=== PATIENT | female | born 1990 | race Hispanic/Latino ===

== ENCOUNTER 2017-09-14 13:13 | Outpatient (CLI) | payer OTHER ==
--- NOTE | 2017-09-14 15:40 | ULT ---
OB ULTRASOUND: Date: 09/14/17 HISTORY: anatomy. FINDINGS: A single live intrauterine gestation is seen with measurements corresponding to an estimated gestati onal age of 20 weeks/4 days and STARR at 01/28/18. measurements are as follows: BPD: 4.96 cm, 21 weeks/0 days HC: 18.18 cm, 20 weeks/4 days FL: 3.42 cm, 20 weeks/5 days Cervical length measures 5.7 cm. heart rate measures 128 beats/minute. Placenta is anteriorly located without evidence of placenta previa. LUPE measures 13.0 cm. Three vessel cord, cord insertion, kidneys, bladder, stomach, four chamber heart, lateral vent ricles, cerebellum, spine, lips/nose, and upper/lower extremities are visualized. No definite anomalies seen. IMPRESSION: Single live intrauterine of 20 weeks/4 days estimated gestational age and STARR at 01/28/18. POS: GREGORIO
== END 2017-09-14 13:14 | disposition home or self-care (01) ==
LOC: SCSULT 13:13
PROVIDERS: ATTEND Family Medicine
DX: Z34.90 Encounter for supervision of normal pregnancy, unspecified, unspecified trimester (principal)
CPT/HCPCS: 76805

== ENCOUNTER 2018-01-24 04:28 | Inpatient (IN) | payer OTHER ==
[2018-01-24] MEDS ORDERED: HYDROcodone/Acetaminophen 5/325 mg Tablet PO PRN (04:53)
[2018-01-24] MEDS ORDERED: Ibuprofen 800 MG TAB PO PRN (04:53)
[2018-01-24] MEDS ORDERED: Lidocaine 1% (PF) 30 ML VIAL SC PRN (04:53)
[2018-01-24] MEDS ORDERED: LR / Pitocin 40 units/1000 ml 1,000 ML IV PRN (04:53)
[2018-01-24] MEDS ORDERED: Promethazine HCl 25 MG/ML VIAL IM PRN ×2 (04:56→06:10)
[2018-01-24] MEDS ORDERED: Ondansetron HCl/PF 4 MG/2 ML Vial IVP PRN ×2 (04:56→06:10)
[2018-01-24] MEDS ORDERED: LR / Pitocin 40 units/1000 ml 1,000 ML ONE (04:57)
[2018-01-24] MEDS ORDERED: Lidocaine 1% (PF) 30 ML VIAL ONE (04:58)
[2018-01-24] MEDS: Lactated Ringer's 1,000 ML IV SCH ×2 (05:10→06:16)
[2018-01-24] MEDS ORDERED: Bupivacaine 0.5% 20 ML, Fentanyl 400 MCG in Sodium Chloride 0.9% 72 ML EPIDURAL SCH (05:15)
--- NOTE | 2018-01-24 05:27 | HP ---
DATE OF ADMISSION: 01/24/2018 ATTENDING: Kita Julian M.D. EVALUATING PHYSICIAN: Seamus Hendricks M.D. CHIEF COMPLAINT: Contractions. HISTORY OF PRESENT ILLNESS: Ms. Burnham is a 27-year-old white G3, P2-0-0-2 with an estimated date of confinement of 01/30/2018 who presents to Labor and Delivery early this morning complaining of reg ular uterine contractions since about 2:00 a.m. Her care has been with Dr. Julian and has bee n reportedly uncomplicated. She was seen for exam last week and states she was 3 cm. She denies rup ture of membranes or vaginal bleeding. PAST OBSTETRICAL HISTORY: Includes 2 uncomplicated vaginal deliveries, the largest of which was 7 po unds 15 ounces. PAST MEDICAL HISTORY: Unremarkable. PAST SURGICAL HISTORY: She denies. CURRENT MEDICATIONS: vitamins. SOCIAL HISTORY: Denies tobacco or alcohol use. ALLERGIES: None. REVIEW OF SYSTEMS: Denies nausea, vomiting, fever or chills. PHYSICAL EXAMINATION: VITAL SIGNS: Stable. She is afebrile on admission. LUNGS: Clear to auscultation. CARDIOVASCULAR: Regular rate and rhythm. ABDOMEN: Soft, gravid, nontender. PELVIC: Pelvic examination by the labor nurse shows the cervix to be 6 cm dilated with a vertex pres enting. heart tones are stable. LABORATORY DATA: Reviewed and she is noted to be group B strep negative. ASSESSMENT: 1. Term intrauterine . 2. Active labor. PLAN: The patient will be admitted. The patient is requesting an epidural. Dr. Julian has been notif ied.
[2018-01-24 05:34] LABS: Hemoglobin 10.3 g/dL (12.0-16.0); Mean Corpuscular HGB CONC 31.5 g/dL (32.0-36.0); Mean Corpuscular Hemoglobin 25.5 pg (27.0-31.0); Mean Corpuscular Volume 80.8 fl (81.0-99.0); Platelet Count 437 thou/uL (130-400); RBC Distribution Width 16.2 % (11.5-14.5); Red Blood Cell (RBC) Count 4.02 mill/uL (4.20-5.40)
[2018-01-24 05:47] VITALS: BMI 31.4
[2018-01-24] MEDS ORDERED: Acetaminophen 325 MG TAB PO PRN (06:10)
[2018-01-24] MEDS ORDERED: Eucerin (Mineral Oil/Petrolatum,White) 30 gm Jar TOP PRN (06:10)
[2018-01-24] MEDS ORDERED: diphenhydrAMINE 50 MG/ML VIAL IVP PRN (06:10)
[2018-01-24] MEDS ORDERED: Naloxone HCl 0.4 mg/ml Vial IVP PRN ×2 (06:10)
[2018-01-24] MEDS ORDERED: ePHEDrine/0.9% NaCl/PF SYRINGE 50 mg/10 ml SLOW IVP PRN (06:10)
[2018-01-24] MEDS ORDERED: Lactated Ringer's 500 ML IV PRN (06:10)
[2018-01-24] MEDS ORDERED: Communication Order-Pharmacy FS SCH (06:15)
[2018-01-24] MEDS ORDERED: Fentanyl 4mcg/Marcaine 0.1% Cassette 100 ML EPIDURAL SCH (06:15)
[2018-01-24 06:16] LABS: Syphilis Antibody Nonreactive (Nonreactive); Syphilis Antibody Index 0.06 S/CO (<1.00 Non-Reactive)
[2018-01-24 06:27] LABS: HBSAg Index 0.12 S/CO (0-0.99); Hep B Surf Ag Non-Reactive S/CO (NonReactive)
[2018-01-24] MEDS ORDERED: FLU VACC QS2017-18 36 mo. & older 0.5 ML SYRINGE IM ONE ×2 (07:00→21:00)
[2018-01-24 10:59] LABS: Actual Bicarbonate (HCO3a) 24.1 mEq/L (22-26); Base Excess (BEa) -7.9 mEq/L (0 (+/-) 2.5)
[2018-01-24] MEDS ORDERED: LR / Pitocin 40 units/1000 ml 1,000 ML IV SCH (11:08)
[2018-01-24] MEDS ORDERED: Bisacodyl 10 MG SUPP PR PRN (11:08)
[2018-01-24] MEDS ORDERED: Milk Of Magnesia 30 ML UDCUP PO PRN (11:08)
[2018-01-24] MEDS ORDERED: Lanolin Ointment 7 GM TUBE TOP PRN (11:08)
[2018-01-24] MEDS ORDERED: Ibuprofen 800 MG TAB PO SCH ×2 (11:45→14:00)
--- NOTE | 2018-01-24 11:48 | DN ---
DATE OF DELIVERY: 01/24/2018 PREOPERATIVE DIAGNOSIS: Term intrauterine in labor. POSTOPERATIVE DIAGNOSIS: Term intrauterine in labor. PROCEDURE PERFORMED: Normal spontaneous vaginal delivery. SURGEON: Kita Julian M.D. ANESTHESIA: Epidural. ESTIMATED BLOOD LOSS: 300 mL. BRIEF DELIVERY SUMMARY: This is a 27-year-old G3, now P3 who presented in active labor. She progres sed well to complete and pushing. Throughout the labor course, the baby had some variable decelerati ons with contractions that resolved with resolution of the contraction. Overall, heart tracing was reassuring. She delivered a live male , head OA. Mouth and nares was bulb suctioned at t he perineum. There was a nuchal cord x1 which was reduced prior to delivery of the shoulders. Shoul ders and body easily followed. The infant was initially not breathing vigorously [facility] The team was called. Apgars were 6 at 1 minute and 8 at 5 minutes. They perf ormed PPV and suctioning with good response from the baby. Placenta delivered spontaneously and inta ct with a 3-vessel umbilical cord. Cord gases were sent for analysis. Cervix, vagina, and perineum were inspected for lacerations and there were none to be found. Mom and baby were left with the nurs e in excellent condition attempting to breast feed.
[2018-01-24] MEDS: Ibuprofen 800 MG TAB PO SCH ×2 (17:17→23:37)
[2018-01-24] MEDS: Ferrous Sulfate 325 MG TAB PO SCH (18:11)
[2018-01-24] MEDS ORDERED: Bupivacaine HCl 0.5%/Epinephrine 1:200,000/PF 30 ml Vial ONE ×2 (18:38)
[2018-01-24] MEDS ORDERED: Bupivacaine 0.25% 10 ML VIAL ONE (18:38)
[2018-01-24] MEDS: HYDROcodone/Acetaminophen 5/325 mg Tablet PO PRN (21:56)
[2018-01-24] MEDS: Docusate Calcium (SURFAK) 240 MG CAP PO SCH (21:57)
[2018-01-25] MEDS: Ibuprofen 800 MG TAB PO SCH (06:10)
[2018-01-25 09:39] VITALS: BP 128/61; TEMP 98.5
[2018-01-25] MEDS: Docusate Calcium (SURFAK) 240 MG CAP PO SCH (10:10)
[2018-01-25] MEDS: Ferrous Sulfate 325 MG TAB PO SCH (11:47)
[2018-01-25] MEDS: HYDROcodone/Acetaminophen 5/325 mg Tablet PO PRN (11:48)
== END 2018-01-25 14:58 | disposition home or self-care (01) | DRG 775 ==
LOC: L&D/OP 04:28 → L&D 04:50 → 3SW 14:05
PROVIDERS: ADMIT Family Medicine; ATTEND Family Medicine
PROC: 10E0XZZ Delivery of Products of Conception, External Approach (ICD-10-PCS; principal; 2018-01-24)
PROC: 10907ZC Drainage of Amniotic Fluid, Therapeutic from Products of Conception, Via Natural or Artificial Opening (ICD-10-PCS; 2018-01-24)
DX: O69.81X0 Labor and delivery complicated by cord around neck, without compression, not applicable or unspecified (principal); Z37.0 Single live birth; Z3A.39 39 weeks gestation of pregnancy
CPT/HCPCS: 51702; 82805; 85027; 86780; 87340; 99285; J0670; J2001; J3010; J3490; J7050; S0020